=== PATIENT | female | born 1960 | race Caucasian/White ===

== ENCOUNTER 2017-09-19 16:45 | Emergency (ER) | payer BC ==
[~2017-09-19] VITALS: Ht 165.1 cm; Wt 85.0 kg
[2017-09-19 16:53] VITALS: BP 156/73; PULSE 82; RESP 16; TEMP 97.7; O2SAT 98
[2017-09-19] MEDS ORDERED: LISI-515 PO (19:58)
[2017-09-19] MEDS ORDERED: ASPI-516 CHEW (19:58)
[2017-09-19] MEDS ORDERED: LIDOCAINE HCL 1% PF 30 ML VIAL INFIL ONE (20:00)
[2017-09-19] MEDS ORDERED: TETANUS/DIPHTHERIA TOXOID ADULT 0.5 ML VIAL IM ONE (20:00)
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
== END 2017-09-19 20:41 | disposition home or self-care (01) ==
LOC: NEPD 16:45
DX: S61.012A Laceration without foreign body of left thumb without damage to nail, initial encounter (principal); W45.8XXA Other foreign body or object entering through skin, initial encounter; Y93.89 Activity, other specified; Y92.89 Other specified places as the place of occurrence of the external cause; Z23 Encounter for immunization
CPT/HCPCS: 12001; 90471; 90714